=== PATIENT | male | born 1940 | race Caucasian/White ===

== ENCOUNTER 2017-02-14 20:28 | Emergency (ER) | payer MEDICARE, BC ==
[2017-02-14 20:57] LABS: BASO % 0.3 % (0-6); EOS % 1.9 % (0-6); GRAN % 48.9 % (47-80); HEMATOCRIT 43.1 % (42.0-52.0); HEMOGLOBIN 13.7 gm/dl (14.0-18.0); LYMPH % 35.5 % (16-45); MEAN CELL VOLUME 92.7 fl (81-97); MEAN CORPUSCULAR HGB CONC 31.8 g/dl (32-36); MEAN PLATELET VOLUME 10.3 fl (7.4-10.4); MONO % 13.4 % (0-9); PLATELET COUNT 362 K/uL (130-400); RED BLOOD COUNT 4.65 M/uL (4.40-5.70); RED CELL DISTRIBUTION WIDTH 14.8 % (11.5-14.5)
[2017-02-14 20:58] LABS: MEAN CORPUSCULAR HEMOGLOBIN 29.4 pg (27-33)
[2017-02-14 22:05] LABS: CKMB 1.4 ug/L (0-6)
[2017-02-14 22:16] LABS: TROPONIN I 0.198 ng/mL (0.00-0.034)
[2017-02-14] MEDS ORDERED: ASPIRIN 81 MG CHEWABLE TABLET PO ONE (22:30)
[2017-02-14 23:20] LABS: CREATININE 2.4 mg/dL (0.66-1.25)
[2017-02-14] MEDS ORDERED: POTASSIUM CHLORIDE 40 MEQ/15ML 40 MEQ/15 ML ML PO ONE (23:27)
--- NOTE | 2017-02-14 23:34 | Emergency Department Record ---
History of Present Illness - General Chief Complaint: Fall Injury Stated Complaint: FELL Time Seen by Provider: 02/14/17 20:39 Source: Patient, EMS Mode of Arrival: Ambulatory Limitations: No limitations - History of Present Illness Initial Comments: pt brought in for fall. pt has frequent falls and just got out of [facility] today. pt had no loc MD Complaint: Fall -: Unknown Fall From: Other When Fall Occurred: Just prior to arrival Fall Witnessed: Yes, by family Place Fall Occurred: Home Loss of Consciousness: None Prolonged Down Time?: No Symptoms Prior to Fall: None Context: History of frequent falls Associated Symptoms: Denies - [place] Coma Scale Eye Response: (4) Open spontaneously Motor Response: (6) Obeys commands Verbal Response: (5) Oriented [place] Total: 15 - Related Data Home Medications Medication Instructions Recorded Confirmed Last Taken Acetaminophen [Tylenol Extra 500 mg PO ASDIR 02/14/17 02/14/17 Unknown Strength] Amlodipine Besylate [Norvasc] 10 mg PO DAILY 02/14/17 02/14/17 Unknown Atorvastatin Calcium 20 mg PO DAILY 02/14/17 02/14/17 Unknown Carbidopa/Levodopa [Sinemet 25-100 1 each PO TID 02/14/17 02/14/17 Unknown mg Tablet] Clotrimazole/Betamethasone Dip 45 gm TP BID 02/14/17 02/14/17 Unknown [Clotrimazole-Betamethasone Crm] Dicyclomine HCl [Bentyl] 10 mg PO Q8H 02/14/17 02/14/17 Unknown Doxazosin Mesylate [Cardura] 2 mg PO DAILY 02/14/17 02/14/17 Unknown Enalapril Maleate 10 mg PO DAILY 02/14/17 02/14/17 Unknown Fluticasone Propionate [Flonase] 2 spray EACH NARES DAILY 02/14/17 02/14/17 Unknown Fluticasone/Salmeterol 250/50 1 each IH QAM 02/14/17 02/14/17 Unknown [Advair 250/50] Furosemide [Lasix] 20 mg PO DAILY 02/14/17 02/14/17 Unknown Gabapentin [Neurontin] 400 mg PO TID 02/14/17 02/14/17 Unknown Insulin Aspart [Novolog Flexpen] 0 unit SQ ASDIR 02/14/17 02/14/17 Unknown Insulin Degludec [Tresiba 55 unit SQ DAILY 02/14/17 02/14/17 Unknown Flextouch U-100] Insulin Detemir [Levemir Flextouch] 40 unit SQ DAILY 02/14/17 02/14/17 Unknown Mirabegron [Myrbetriq] 25 mg PO DAILY 02/14/17 02/14/17 Unknown Mirtazapine [Remeron] 15 mg PO QHS 02/14/17 02/14/17 Unknown Potassium Chloride [Klor-Con 10] 10 meq PO QAM 02/14/17 02/14/17 Unknown Sitagliptin Phosphate [Januvia] 100 mg PO DAILY 02/14/17 02/14/17 Unknown Zolpidem Tartrate [Ambien] 5 mg PO QHS 02/14/17 02/14/17 Unknown Allergies Allergy/AdvReac Type Severity Reaction Status Date / Time No Known Drug Allergies Allergy Verified 02/14/17 22:30 Travel Screening - Travel/Exposure Within Last 30 Days Have you traveled within the last 30 days?: No - Travel/Exposure Within Last Year Have you traveled outside the [place] in the last year?: No - Additonal Travel Details Have you been exposed to anyone with a communicable illness?: No - Travel Symptoms Symptom Screening: None Review of Systems Reviewed: No additional complaints except as noted below Constitutional: Reports: As per HPI. Denies: Chills, Fever, Malaise, Night sweats, Weakness, Weight change Eyes: Reports: As per HPI. Denies: Eye discharge, Eye pain, Photophobia, Vision change ENT: Reports: As per HPI. Denies: Congestion, Dental pain, Ear pain, Epistaxis , Hearing loss, Throat pain Respiratory: Reports: As per HPI. Denies: Cough, Dyspnea, Hemoptysis, Stridor, Wheezes Cardiovascular: Reports: As per HPI. Denies: Arrhythmia, Chest pain, Dyspnea on exertion, Edema, Murmurs, Orthopnea, Palpitations, Paroxysmal nocturnal dyspnea, Rheumatic Fever, Syncope Endocrine: Reports: As per HPI. Denies: Fatigue, Heat or cold intolerance, Polydipsia, Polyuria Gastrointestinal: Reports: As per HPI. Denies: Abdominal pain, Constipation, Diarrhea, Hematemesis, Hematochezia, Melena, Nausea, Vomiting Genitourinary: Reports: As per HPI. Denies: Dysuria, Frequency, Hematuria, Incontinence, Retention, Testicular pain, Testicular mass, Urgency Musculoskeletal: Reports: As per HPI. Denies: Arthralgia, Back pain, Gout, Joint swelling, Myalgia, Neck pain Skin: Reports: As per HPI. Denies: Bruising, Change in color, Change in hair/ nails, Lesions, Pruritus, Rash Neurological: Reports: As per HPI. Denies: Abnormal gait, Confusion, Headache, Numbness, Paresthesias, Seizure, Tingling, Tremors, Vertigo, Weakness Psychiatric: Reports: As per HPI. Denies: Anxiety, Auditory hallucinations, Depression, Homicidal thoughts, Suicidal thoughts, Visual hallucinations Hematological/Lymphatic: Reports: As per HPI. Denies: Anemia, Blood Clots, Easy bleeding, Easy bruising, Swollen glands Past Medical History - SOCIAL HISTORY Smoking Status: Never smoker Alcohol Use: None Drug Use: None - CARDIOVASCULAR Hx Cardio Disorders: Yes Hx Hypertension: Yes Comment:: high cholesterol - NEURO Hx Neuro Disorders: Yes Hx TIA: Yes - ENDOCRINE Hx Endocrine Disorders: Yes Hx Diabetes: Yes Family Medical History Any Significant Family History?: No Physical Exam - General General Appearance: Alert, Oriented x3, Cooperative, Mild distress Limitations: No limitations - Head Head exam: Normal inspection - Eye Eye exam: Normal appearance, PERRL, EOMI Pupils: Normal accommodation - ENT ENT exam: Normal exam, Mucous membranes moist, Normal external ear exam, Normal orophraynx Ear exam: Normal external inspection. negative: External canal tenderness Nasal Exam: Normal inspection. negative: Discharge, Sinus tenderness Mouth exam: Normal external inspection, Tongue normal Teeth exam: Normal inspection. negative: Dental caries Throat exam: Normal inspection. negative: Tonsillar erythema, Tonsillar exudate - Neck Neck exam: Normal inspection, Full ROM. negative: Tenderness - Respiratory Respiratory exam: Normal lung sounds bilaterally, Chest wall tenderness. negative: Respiratory distress - Cardiovascular Cardiovascular Exam: Regular rate, Normal rhythm, Normal heart sounds - GI/Abdominal GI/Abdominal exam: Soft, Normal bowel sounds. negative: Tenderness - Rectal Rectal exam: Deferred - exam: Deferred - Extremities Extremities exam: Normal inspection, Full ROM, Normal capillary refill. negative: Tenderness - Back Back exam: Reports: Normal inspection, Full ROM. Denies: Muscle spasm, Rash noted, Tenderness - Neurological Neurological exam: Alert, CN II-XII intact, Normal gait, Oriented X3 - Psychiatric Psychiatric exam: Normal affect, Normal mood - Skin Skin exam: Dry, Intact, Normal color, Warm Course Vital Signs 02/14/17 02/14/17 02/14/17 20:42 22:05 23:25 Temperature 97.6 F 97.6 F Pulse Rate 60 Pulse Rate [ 61 60 Pulse Ox Probe] Respiratory 18 21 16 Rate Blood Pressure 132/57 Blood Pressure 172/67 148/53 [Left Arm] Pulse Ox 93 L 94 L 96 - Reevaluation(s) Reevaluation #1: 02/14/17 23:32 pt became more confused prior to getting labs back. acucheck was low and pt was fed and is much better. pt had 1 brief episode of cp. Medical Decision Making - Lab Data Result diagrams: 02/14/17 20:50 02/14/17 20:50 Lab Results 02/14/17 02/14/17 02/14/17 Range/Units 20:50 20:50 21:20 WBC 12.0 (4.2-12.2) K/uL RBC 4.65 (4.40-5.70) M/uL Hgb 13.7 L (14.0-18.0) gm/dl Hct 43.1 (42.0-52.0) % MCV 92.7 (81-97) fl MCH 29.4 (27-33) pg MCHC 31.8 L (32-36) g/dl RDW 14.8 H (11.5-14.5) % Plt Count 362 (130-400) K/uL MPV 10.3 (7.4-10.4) fl Gran % 48.9 (47-80) % Lymphocytes % 35.5 (16-45) % Monocytes % 13.4 H (0-9) % Eosinophils % 1.9 (0-6) % Basophils % 0.3 (0-6) % Sodium 138 (136-145) mmol/L Potassium 3.1 L (3.5-5.1) mmol/L Chloride 98 (98-107) mmol/L Carbon Dioxide 23.0 (22-30) mmol/L Anion Gap 17.0 H (7-16) BUN 18 (9-20) mg/dL Creatinine 2.4 H (0.66-1.25) mg/dL Estimated GFR 28 ml/min POC Glucose (70-110) mg/dL Random Glucose 37 L* (70-110) mg/dL Calcium 10.2 H (8.5-10.1) mg/dL Creatine Kinase 189 H (55-170) U/L CK-MB (CK-2) 1.4 (0-6) ug/L Troponin I 0.198 H* (0.00-0.034) ng/mL 02/14/17 Range/Units 22:28 WBC (4.2-12.2) K/uL RBC (4.40-5.70) M/uL Hgb (14.0-18.0) gm/dl Hct (42.0-52.0) % MCV (81-97) fl MCH (27-33) pg MCHC (32-36) g/dl RDW (11.5-14.5) % Plt Count (130-400) K/uL MPV (7.4-10.4) fl Gran % (47-80) % Lymphocytes % (16-45) % Monocytes % (0-9) % Eosinophils % (0-6) % Basophils % (0-6) % Sodium (136-145) mmol/L Potassium (3.5-5.1) mmol/L Chloride (98-107) mmol/L Carbon Dioxide (22-30) mmol/L Anion Gap (7-16) BUN (9-20) mg/dL Creatinine (0.66-1.25) mg/dL Estimated GFR ml/min POC Glucose 38 L* (70-110) mg/dL Random Glucose (70-110) mg/dL Calcium (8.5-10.1) mg/dL Creatine Kinase (55-170) U/L CK-MB (CK-2) (0-6) ug/L Troponin I (0.00-0.034) ng/mL Disposition Disposition: Transfer Clinical Impression: Elevated troponin, Hypoglycemia, Hypokalemia, Frequent falls Chest pain Qualifiers: Chest pain type: unspecified Qualified Code(s): R07.9 - Chest pain, unspecified Disposition: Acute Care Hospital Transfer Transfer To: [facility] Reason For Transfer: elevated troponin Accepting Physician: dr herman Time Discussed w/Accepting Physician: 23:46 Forms: Patient Portal Access
[2017-02-14] MEDS ORDERED: POTASSIUM CHLORIDE 20 MEQ/15ML CUP PO ONE (23:37)
--- NOTE | 2017-02-20 07:51 | CT SCAN REPORT ---
EXAM: HEAD CT WITHOUT CONTRAST HISTORY: FELL OFF TOILET, WEAKNESS, HISTORY OF PARKINSON'S. NO LOSS OF CONSCIOUSNESS. TECHNIQUE: Contiguous axial images from the cerebral convexities to the foramen magnum were obtained without contrast. Comparison: None. Encounter: Initial. FINDINGS: Mild generalized atrophy of the brain. No acute intracranial hemorrhage, mass effect, or midline shift. Mild decreased attenuation in the periventricular white matter of the cerebral hemispheres. No CT evidence of acute infarct. There is fat attenuation density with a peripheral calcification in the quadrigeminal plate cistern to the left of midline measuring 14 x 4 mm likely due to a dermoid cyst. No evidence of rupture. The ventricles, basal cisterns and sulci are within normal limits. The osseous structures, soft tissues and paranasal sinuses are unremarkable. IMPRESSION: 1. NO ACUTE INTRACRANIAL PROCESS. 2. PROBABLE INCIDENTAL SMALL DERMOID CYST IN THE QUADRIGEMINAL PLATE CISTERN TO THE LEFT OF MIDLINE. NO EVIDENCE OF RUPTURE. 3. MILD CHRONIC SMALL VESSEL ISCHEMIC CHANGE. JOB NUMBER: [id number] [facility]
--- NOTE | 2017-02-20 08:09 | CT SCAN REPORT ---
EXAM: CERVICAL SPINE CT WITH TWO DIMENSIONAL REFORMATS HISTORY: FELL FROM TOILET, WEAKNESS, NECK PAIN. TECHNIQUE: Contiguous axial images from the skull base to the T2 level were obtained without contrast. Sagittal and coronal two dimensional reformatted images were obtained for better anatomic delineation. Comparison: None. FINDINGS: Slight reversal of the normal cervical lordosis. Prior anterior plate and screw fusion of the C5-C6 level with bone ankylosis of the vertebral bodies. The C1-C2 articulation appears appropriate and the odontoid is intact. No acute fracture or subluxation. At the C2-C3 level: No central canal stenosis. Severe facet arthropathy on the right. Mild right neural foraminal stenosis. At the C3-C4 level: No central canal stenosis. Severe facet arthropathy on the right with severe right neural foraminal stenosis. At the C4-C5 level: No central canal stenosis. Advanced facet arthropathy. Mild to moderate neural foraminal stenosis. At the C5-C6 level: No central canal stenosis. Facet arthropathy with mild neural foraminal stenosis. At the C6-C7 level: Small end plate osteophytes with no disk protrusion. Uncovertebral joint hypertrophy. Mild to moderate bilateral neural foraminal stenosis. At the C7-T1 level: No central canal stenosis. Facet arthropathy with mild bilateral neural foraminal stenosis. The soft tissues of the cervical region demonstrate a few small cystic nodules in the right lobe of the thyroid which are benign. The lung apices are clear. IMPRESSION: 1. NO ACUTE FRACTURE OR SUBLUXATION OF THE CERVICAL SPINE. 2. ADVANCED MULTILEVEL DEGENERATIVE CHANGE OF THE CERVICAL SPINE WITH NO CENTRAL CANAL STENOSIS AT ANY LEVEL. 3. ADVANCED FACET ARTHROPATHY AT MULTIPLE LEVELS RESULTING IN VARYING DEGREES OF NEURAL FORAMINAL STENOSIS ABOVE. JOB NUMBER: [id number] [facility]
== END 2017-02-15 00:38 | disposition short-term general hospital (02) ==
LOC: ER 20:28
DX: R07.9 Chest pain, unspecified (principal); R79.89 Other specified abnormal findings of blood chemistry; E87.6 Hypokalemia; R53.1 Weakness; E11.649 Type 2 diabetes mellitus with hypoglycemia without coma; Z79.4 Long term (current) use of insulin; Z91.81 History of falling; W18.11XA Fall from or off toilet without subsequent striking against object, initial encounter; Y92.002 Bathroom of unspecified non-institutional (private) residence as the place of occurrence of the external cause
CPT/HCPCS: 36416; 70450; 72125; 80048; 82550; 82553; 82948; 84484; 85025; 93005; 93010; 99285

== ENCOUNTER 2017-02-23 18:17 | Inpatient (IN) | payer MEDICARE, BC ==
[2017-02-23] MEDS ORDERED: 0.9 % SODIUM CHLORIDE 1000ML 1,000 ML IV SCH (18:30)
--- NOTE | 2017-02-23 18:33 | Emergency Department Record ---
History of Present Illness - General Chief Complaint: Altered Mental Status Stated Complaint: ALTERED MENTAL STATE Time Seen by Provider: 02/23/17 18:26 Source: Patient, EMS Mode of Arrival: EMS Limitations: No limitations - History of Present Illness Initial Comments: 76 yo male presents to ED from home for evaluation of altered mental status and low blood sugar. Per EMS, patient was given both Glucagon and oral glucose which improved his mentation. Police/EMS report that the patient has experienced (3) hypoglycemic episodes in the last 3 days. Patient denies recent illness, fevers, chills, cough, or abdominal pain symptoms. Patient does report just getting back from [place] and is living with his grandson for the past 1 weeks, police feel they are unable to care for the patient currently. MD Complaint: Altered mental status Onset/Timin -: Minutes(s) Severity: Severe Context: Diabetes Associated Symptoms: Other Treatment Prior to Arrival Comment:: glucagon - [place] Coma Scale Eye Response: (4) Open spontaneously Motor Response: (6) Obeys commands Verbal Response: (5) Oriented [place] Total: 15 - Related Data Home Medications Medication Instructions Recorded Confirmed Last Taken Acetaminophen [Tylenol Extra 500 mg PO ASDIR 02/14/17 02/23/17 Unknown Strength] Amlodipine Besylate [Norvasc] 10 mg PO DAILY 02/14/17 02/23/17 Unknown Atorvastatin Calcium 20 mg PO DAILY 02/14/17 02/23/17 Unknown Carbidopa/Levodopa [Sinemet 25-100 1 each PO TID 02/14/17 02/23/17 Unknown mg Tablet] Clotrimazole/Betamethasone Dip 45 gm TP BID 02/14/17 02/23/17 Unknown [Clotrimazole-Betamethasone Crm] Dicyclomine HCl [Bentyl] 10 mg PO Q8H 02/14/17 02/23/17 Unknown Doxazosin Mesylate [Cardura] 2 mg PO DAILY 02/14/17 02/23/17 Unknown Enalapril Maleate 10 mg PO DAILY 02/14/17 02/23/17 Unknown Fluticasone Propionate [Flonase] 2 spray EACH NARES DAILY 02/14/17 02/23/17 Unknown Fluticasone/Salmeterol 250/50 1 each IH QAM 02/14/17 02/23/17 Unknown [Advair 250/50] Furosemide [Lasix] 20 mg PO DAILY 02/14/17 02/23/17 Unknown Gabapentin [Neurontin] 400 mg PO TID 02/14/17 02/23/17 Unknown Insulin Aspart [Novolog Flexpen] 0 unit SQ ASDIR 02/14/17 02/23/17 Unknown Insulin Degludec [Tresiba 55 unit SQ DAILY 02/14/17 02/23/17 Unknown Flextouch U-100] Insulin Detemir [Levemir Flextouch] 40 unit SQ DAILY 02/14/17 02/23/17 Unknown Mirabegron [Myrbetriq] 25 mg PO DAILY 02/14/17 02/23/17 Unknown Mirtazapine [Remeron] 15 mg PO QHS 02/14/17 02/23/17 Unknown Potassium Chloride [Klor-Con 10] 10 meq PO QAM 02/14/17 02/23/17 Unknown Sitagliptin Phosphate [Januvia] 100 mg PO DAILY 02/14/17 02/23/17 Unknown Zolpidem Tartrate [Ambien] 5 mg PO QHS 02/14/17 02/23/17 Unknown Allergies Allergy/AdvReac Type Severity Reaction Status Date / Time No Known Drug Allergies Allergy Verified 02/23/17 18:31 Travel Screening - Travel/Exposure Within Last 30 Days Have you traveled within the last 30 days?: No Review of Systems Constitutional: Denies: Chills, Fever, Malaise, Night sweats Eyes: Denies: Eye discharge, Eye pain ENT: Denies: Congestion, Ear pain, Epistaxis Respiratory: Denies: Cough, Dyspnea Cardiovascular: Denies: Chest pain, Dyspnea on exertion Endocrine: Denies: Fatigue, Heat or cold intolerance Gastrointestinal: Denies: Abdominal pain, Nausea, Vomiting Genitourinary: Denies: Incontinence, Retention Musculoskeletal: Reports: Back pain (chronic per patient). Denies: Arthralgia Skin: Denies: Bruising, Change in color Neurological: Reports: Confusion. Denies: Abnormal gait, Headache Psychiatric: Denies: Anxiety Hematological/Lymphatic: Denies: Anemia, Blood Clots Past Medical History - SOCIAL HISTORY Smoking Status: Never smoker Drug Use: None - CARDIOVASCULAR Hx Cardio Disorders: Yes Hx Hypertension: Yes Comment:: high cholesterol - NEURO Hx Neuro Disorders: Yes Hx TIA: Yes - ENDOCRINE Hx Endocrine Disorders: Yes Hx Diabetes: Yes Physical Exam - General General Appearance: Alert, Oriented x3, Cooperative, Mild distress Limitations: No limitations - Head Head exam: Atraumatic, Normocephalic, Normal inspection Head exam detail: negative: Abrasion, Contusion, Ordonez's sign, General tenderness, Hematoma, Laceration - Eye Eye exam: Normal appearance. negative: Conjunctival injection, Periorbital swelling, Periorbital tenderness, Scleral icterus - ENT Ear exam: negative: Auricular hematoma, Auricular trauma Nasal Exam: negative: Active bleeding, Discharge, Dried blood, Foreign body Mouth exam: negative: Drooling, Laceration, Muffled voice, Tongue elevation - Neck Neck exam: Normal inspection. negative: Meningismus, Tenderness - Respiratory Respiratory exam: Normal lung sounds bilaterally. negative: Respiratory distress, Rhonchi, Stridor, Wheezes - Cardiovascular Cardiovascular Exam: Regular rate, Normal rhythm, Normal heart sounds - GI/Abdominal GI/Abdominal exam: Soft. negative: Pulsatile mass, Rebound, Rigid, Tenderness - Rectal Rectal exam: Deferred - exam: Deferred - Extremities Extremities exam: Pedal edema. negative: Calf tenderness, Tenderness - Back Back exam: Denies: CVA tenderness (R), CVA tenderness (L) - Neurological Neurological exam: Alert, Oriented X3, Other (mild resting tremor to the upper extremities bilaterally on examination). negative: Motor sensory deficit - Psychiatric Psychiatric exam: Normal affect, Normal mood - Skin Skin exam: Pallor. negative: Abrasion Type of lesion: negative: abrasion Course Vital Signs 02/23/17 18:19 Temperature 97.6 F Pulse Rate 60 Respiratory 16 Rate Blood Pressure 82/36 Pulse Ox 96 - Reevaluation(s) Reevaluation #1: 02/23/17 18:48 EKG: Paced rhythm 60 LBBB morphology Unchanged from previous Reevaluation #2: 02/23/17 19:12 Labs reviewed, Hgb 11.6, WBC 7.1, Lactic acid 2.2, BUN/Creatinine are 38/1.8 (18 /2.4). Patient is currently in x-ray. Reevaluation #3: 02/23/17 19:26 repeat BP 114/91 upon arrival back to the ED, D50 given for recurrent hypoglycemia. Reevaluation #4: 02/23/17 20:34 CT Brain: Atrophy, chronic changes, nothing acute. CXR: pacemaker, elevated right jasson-diaphragm Repeat accu check 84, patient is eating currently, awaiting UA results. Reevaluation #5: 02/23/17 20:58 Case was discussed with Michelle Claros, will admit for further evaluation. Will hole all diabetic medications as well as medications that may be contributing to the patient's change in mental status. 02/23/17 21:04 Medical Decision Making - Lab Data Result diagrams: 02/23/17 18:35 02/23/17 18:35 Disposition Disposition: Admit Clinical Impression: Hypoglycemia Altered mental status Qualifiers: Altered mental status type: unspecified Qualified Code(s): R41.82 - Altered mental status, unspecified Disposition: Still a Patient at [facility] Decision to Admit: Admit from ER Decision to Admit Date: 02/23/17 Decision to Admit Time: 20:48 Condition: (2) Stable Forms: Patient Portal Access Time of Disposition: 20:58
[2017-02-23 18:39] LABS: BASO % 0.7 % (0-6); EOS % 2.8 % (0-6); GRAN % 54.7 % (47-80); HEMATOCRIT 36.3 % (42.0-52.0); HEMOGLOBIN 11.6 gm/dl (14.0-18.0); LYMPH % 29.5 % (16-45); MEAN CELL VOLUME 95.3 fl (81-97); MEAN CORPUSCULAR HEMOGLOBIN 30.4 pg (27-33); MONO % 12.3 % (0-9); PLATELET COUNT 320 K/uL (130-400); RED BLOOD COUNT 3.81 M/uL (4.40-5.70); RED CELL DISTRIBUTION WIDTH 14.7 % (11.5-14.5); WHITE BLOOD COUNT W/O DIFF 7.1 K/uL (4.2-12.2)
[2017-02-23 18:50] LABS: LACTIC ACID 2.2 mmol/L (0.7-2.1)
[2017-02-23 18:51] LABS: ALB/GLOB RATIO 1.2 (1.1-1.8); ALBUMIN 3.6 gm/dL (3.5-5.0); ALKALINE PHOSPHATASE 156 U/L (38-126); ALT/SGPT 12 U/L (21-72); AST/SGOT 60 U/L (17-59); BLOOD UREA NITROGEN 38 mg/dL (9-20); CREATINE PHOSPHOKINASE 104 U/L (55-170); CREATININE 1.8 mg/dL (0.66-1.25); EST GLOMERULAR FILTRATION RATE 39 ml/min; TOTAL PROTEIN 6.6 gm/dL (6.3-8.2)
[2017-02-23] MEDS ORDERED: DEXTROSE 50 % IVP 50 ML DISP.SYRIN IVP ONE (18:53)
[2017-02-23 19:00] LABS: CKMB 1.2 ug/L (0-6); GLUCOSE,RANDOM 49 mg/dL (70-110)
[2017-02-23 19:02] LABS: TROPONIN I < 0.012 ng/mL (0.00-0.034)
[2017-02-23 20:49] LABS: URINE APPEARANCE CLEAR; URINE BILIRUBIN NEGATIVE (NEGATIVE); URINE BLOOD NEGATIVE (NEGATIVE); URINE COLOR YELLOW; URINE GLUCOSE (UA) NEGATIVE (NEGATIVE); URINE KETONE NEGATIVE (NEGATIVE); URINE LEUKOCYTE ESTERASE NEGATIVE (NEGATIVE); URINE NITRITE NEGATIVE (NEGATIVE); URINE PROTEIN NEGATIVE (NEGATIVE); URINE UROBILINOGEN 0.2 E.U./dL (0.20 - 1.00)
[2017-02-23] MEDS ORDERED: 0.9 % SODIUM CHLORIDE 1000ML 1,000 ML IV PRN (21:48)
[2017-02-23] MEDS: CARBIDOPA/LEVODOPA 25MG/100MG TABLET PO SCH (22:43)
[2017-02-23] MEDS: CLOTRIMAZOLE/BETAMET 15 GM TUBE TOP SCH (22:44)
--- NOTE | 2017-02-24 07:33 | RADIOLOGY REPORT ---
EXAM: CHEST HISTORY: HEARTBURN SENSATION. TECHNIQUE: Two views of the chest were obtained. Comparison: None. FINDINGS: The heart is not enlarged and there is no mediastinal mass. There is a pacemaker present. There is elevation of the right hemidiaphragm. There is no acute infiltrate or vascular congestion. There are electrodes overlying the mid thoracic spinal canal. IMPRESSION: 1. NO ACUTE CARDIAC OR PULMONARY ABNORMALITY. 2. ELEVATION RIGHT HEMIDIAPHRAGM. 3. THERE IS A PACEMAKER PRESENT. JOB NUMBER: [id number] [facility]
--- NOTE | 2017-02-24 07:38 | CT SCAN REPORT ---
EXAM: HEAD CT HISTORY: ALTERED MENTAL STATUS. TECHNIQUE: Noncontrast head CT was obtained. Comparison: 02/14/17. FINDINGS: There is mild prominence of the ventricles and subarachnoid spaces likely due to mild atrophy, not unusual for the patient's age. There is no mass or mass effect. No intra or extraaxial hemorrhage. No CT evidence for large acute territorial infarct. There is an area of low density in the left quadrigeminal plate cistern measuring 3.8 x 1.4 cm in size. There is a small peripheral calcification. This is unchanged from the previous study, it may represent a dermoid cyst. No evidence for a rupture seen. The visualized sinuses are clear. IMPRESSION: 1. NO ACUTE INTRACRANIAL PROCESS. 2. PROBABLE INCIDENTAL SMALL DERMOID CYST IN THE QUADRIGEMINAL PLATE CISTERN TO THE LEFT OF MIDLINE UNCHANGED FROM THE PREVIOUS STUDY WITH NO EVIDENCE OF RUPTURE. 3. MILD ATROPHY SIMILAR TO THE PREVIOUS STUDY NOT UNUSUAL FOR THE PATIENT'S AGE. JOB NUMBER: [id number] [facility]
[2017-02-24 08:32] LABS: BASO % 0.5 % (0-6); EOS % 2.3 % (0-6); GRAN % 56.1 % (47-80); HEMATOCRIT 36.3 % (42.0-52.0); HEMOGLOBIN 11.7 gm/dl (14.0-18.0); LYMPH % 30.8 % (16-45); MEAN CELL VOLUME 95.3 fl (81-97); MEAN CORPUSCULAR HEMOGLOBIN 30.7 pg (27-33); MEAN CORPUSCULAR HGB CONC 32.2 g/dl (32-36); MEAN PLATELET VOLUME 10.3 fl (7.4-10.4); MONO % 10.3 % (0-9); PLATELET COUNT 276 K/uL (130-400); RED BLOOD COUNT 3.81 M/uL (4.40-5.70); RED CELL DISTRIBUTION WIDTH 14.9 % (11.5-14.5); WHITE BLOOD COUNT W/O DIFF 8.6 K/uL (4.2-12.2)
[2017-02-24 08:46] LABS: ALB/GLOB RATIO 1.1 (1.1-1.8); ALBUMIN 3.4 gm/dL (3.5-5.0); ANION GAP 2.3 (7-16); BILIRUBIN,TOTAL 0.61 mg/dL (0.2-1.3); CARBON DIOXIDE 22.7 mmol/L (22-30); CREATININE 1.5 mg/dL (0.66-1.25); TOTAL PROTEIN 6.4 gm/dL (6.3-8.2)
[2017-02-24] MEDS: CARBIDOPA/LEVODOPA 25MG/100MG TABLET PO SCH ×3 (09:27→21:34)
[2017-02-24] MEDS: CLOTRIMAZOLE/BETAMET 15 GM TUBE TOP SCH ×2 (09:28→21:38)
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
[2017-02-24] MEDS: FUROSEMIDE 20 MG TABLET PO SCH (11:57)
[2017-02-24] MEDS: NOVOLOG FLEXPEN (INSULIN ASPART) 100 UNITS/ML SQ SCH ×2 (13:25→19:11)
[2017-02-24] MEDS ORDERED: CLOTRIMAZOLE/BETAMET 15 GM TUBE TOP ONE (14:00)
[2017-02-24] MEDS: GABAPENTIN 300 MG CAPSULE PO SCH ×3 (14:24→21:34)
[2017-02-24] MEDS: ACETAMINOPHEN 500 MG TABLET PO PRN ×2 (14:24→21:36)
[2017-02-24] MEDS: DULOXETINE HCL 30 MG CAPSULE.DR PO SCH (22:48)
[2017-02-24] MEDS: ENALAPRIL 5 MG TABLET PO SCH (22:48)
[2017-02-24] MEDS: ATORVASTATIN 20 MG TABLET PO SCH (22:48)
[2017-02-24] MEDS: ZOLPIDEM TARTRATE 5 MG TABLET PO PRN (22:48)
[2017-02-25] MEDS: PANTOPRAZOLE SODIUM 40 MG TABLET PO SCH ×2 (06:14→17:58)
[2017-02-25 06:44] LABS: BASO % 0.7 % (0-6); EOS % 4.6 % (0-6); GRAN % 46.7 % (47-80); HEMATOCRIT 38.4 % (42.0-52.0); HEMOGLOBIN 12.1 gm/dl (14.0-18.0); LYMPH % 37.3 % (16-45); MEAN CELL VOLUME 94.6 fl (81-97); MEAN CORPUSCULAR HEMOGLOBIN 29.8 pg (27-33); MEAN CORPUSCULAR HGB CONC 31.5 g/dl (32-36); MEAN PLATELET VOLUME 10.2 fl (7.4-10.4); MONO % 10.7 % (0-9); PLATELET COUNT 299 K/uL (130-400); RED BLOOD COUNT 4.06 M/uL (4.40-5.70); RED CELL DISTRIBUTION WIDTH 14.8 % (11.5-14.5); WHITE BLOOD COUNT W/O DIFF 6.9 K/uL (4.2-12.2)
[2017-02-25 07:02] LABS: ALB/GLOB RATIO 1.2 (1.1-1.8); ALBUMIN 3.5 gm/dL (3.5-5.0); ALKALINE PHOSPHATASE 145 U/L (38-126); ALT/SGPT 19 U/L (21-72); ANION GAP 4.1 (7-16); AST/SGOT 41 U/L (17-59); BILIRUBIN,TOTAL 0.67 mg/dL (0.2-1.3); BLOOD UREA NITROGEN 26 mg/dL (9-20); CARBON DIOXIDE 26.9 mmol/L (22-30); CREATININE 1.1 mg/dL (0.66-1.25); EST GLOMERULAR FILTRATION RATE > 60 ml/min; GLUCOSE,RANDOM 166 mg/dL (70-110); TOTAL PROTEIN 6.4 gm/dL (6.3-8.2)
[2017-02-25] MEDS: NOVOLOG FLEXPEN (INSULIN ASPART) 100 UNITS/ML SQ SCH ×3 (08:04→17:57)
[2017-02-25] MEDS: DOXAZOSIN MESYLATE 2 MG TABLET PO SCH (10:19)
[2017-02-25] MEDS: FUROSEMIDE 20 MG TABLET PO SCH (10:20)
[2017-02-25] MEDS: DULOXETINE HCL 30 MG CAPSULE.DR PO SCH ×2 (10:20→22:07)
[2017-02-25] MEDS: CLOTRIMAZOLE/BETAMET 15 GM TUBE TOP SCH ×2 (10:20→22:07)
[2017-02-25] MEDS: ENOXAPARIN 40 MG/0.4 ML SYR SQ SCH (10:20)
[2017-02-25] MEDS: GABAPENTIN 300 MG CAPSULE PO SCH ×3 (10:20→22:07)
[2017-02-25] MEDS: CARBIDOPA/LEVODOPA 25MG/100MG TABLET PO SCH ×3 (10:21→22:07)
[2017-02-25] MEDS: CLOPIDOGREL 75MG TABLET PO SCH (10:21)
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
[2017-02-25] MEDS: ENALAPRIL 5 MG TABLET PO SCH (22:07)
[2017-02-25] MEDS: ATORVASTATIN 20 MG TABLET PO SCH (22:07)
[2017-02-25] MEDS: ZOLPIDEM TARTRATE 5 MG TABLET PO PRN (23:36)
[2017-02-26] MEDS: PANTOPRAZOLE SODIUM 40 MG TABLET PO SCH ×2 (06:08→16:04)
[2017-02-26 06:53] LABS: BASO % 0.5 % (0-6); EOS % 3.2 % (0-6); LYMPH % 35.7 % (16-45); MEAN PLATELET VOLUME 9.8 fl (7.4-10.4); MONO % 11.6 % (0-9); RED CELL DISTRIBUTION WIDTH 14.4 % (11.5-14.5); WHITE BLOOD COUNT W/O DIFF 7.5 K/uL (4.2-12.2)
[2017-02-26 07:03] LABS: HEMATOCRIT 37.8 % (42.0-52.0); HEMOGLOBIN 12.4 gm/dl (14.0-18.0); MEAN CELL VOLUME 95.7 fl (81-97); MEAN CORPUSCULAR HEMOGLOBIN 31.4 pg (27-33); MEAN CORPUSCULAR HGB CONC 32.8 g/dl (32-36); PLATELET COUNT 253 K/uL (130-400); RED BLOOD COUNT 3.95 M/uL (4.40-5.70)
[2017-02-26 07:06] LABS: ALB/GLOB RATIO 1.2 (1.1-1.8); ALBUMIN 3.6 gm/dL (3.5-5.0); ALKALINE PHOSPHATASE 160 U/L (38-126); ALT/SGPT 16 U/L (21-72); ANION GAP 6.2 (7-16); AST/SGOT 43 U/L (17-59); BILIRUBIN,TOTAL 0.63 mg/dL (0.2-1.3); BLOOD UREA NITROGEN 25 mg/dL (9-20); CARBON DIOXIDE 28.8 mmol/L (22-30); CREATININE 1.2 mg/dL (0.66-1.25); EST GLOMERULAR FILTRATION RATE > 60 ml/min; GLUCOSE,RANDOM 281 mg/dL (70-110); TOTAL PROTEIN 6.5 gm/dL (6.3-8.2)
[2017-02-26] MEDS: NOVOLOG FLEXPEN (INSULIN ASPART) 100 UNITS/ML SQ SCH ×3 (07:58→17:28)
[2017-02-26] MEDS: DOXAZOSIN MESYLATE 2 MG TABLET PO SCH (09:18)
[2017-02-26] MEDS: CARBIDOPA/LEVODOPA 25MG/100MG TABLET PO SCH ×3 (09:19→21:07)
[2017-02-26] MEDS: FUROSEMIDE 20 MG TABLET PO SCH (09:19)
[2017-02-26] MEDS: DULOXETINE HCL 30 MG CAPSULE.DR PO SCH ×2 (09:19→21:08)
[2017-02-26] MEDS: CLOPIDOGREL 75MG TABLET PO SCH (09:20)
[2017-02-26] MEDS: ENOXAPARIN 40 MG/0.4 ML SYR SQ SCH (09:20)
[2017-02-26] MEDS: GABAPENTIN 300 MG CAPSULE PO SCH ×3 (09:23→21:07)
[2017-02-26] MEDS: CLOTRIMAZOLE/BETAMET 15 GM TUBE TOP SCH ×2 (09:24→21:11)
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
[2017-02-26] MEDS ORDERED: NOVOLOG FLEXPEN (INSULIN ASPART) 100 UNITS/ML SQ ONE (12:47)
[2017-02-26] MEDS: LEVEMIR FLEXTOUCH 100 UNIT/ML INSULIN PEN SQ SCH (12:54)
[2017-02-26] MEDS: ACETAMINOPHEN 500 MG TABLET PO PRN (14:08)
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
[2017-02-26] MEDS: ZOLPIDEM TARTRATE 5 MG TABLET PO PRN (21:07)
[2017-02-26] MEDS: ATORVASTATIN 20 MG TABLET PO SCH (21:07)
[2017-02-26] MEDS: ENALAPRIL 5 MG TABLET PO SCH (21:07)
[2017-02-27] MEDS: PANTOPRAZOLE SODIUM 40 MG TABLET PO SCH ×2 (06:05→16:25)
[2017-02-27 06:34] LABS: BASO % 0.6 % (0-6); EOS % 3.4 % (0-6); GRAN % 52.7 % (47-80); HEMATOCRIT 40.5 % (42.0-52.0); LYMPH % 35.4 % (16-45); MEAN CELL VOLUME 92.7 fl (81-97); MEAN CORPUSCULAR HEMOGLOBIN 29.7 pg (27-33); MEAN CORPUSCULAR HGB CONC 32.1 g/dl (32-36); MEAN PLATELET VOLUME 9.7 fl (7.4-10.4); MONO % 7.9 % (0-9); PLATELET COUNT 271 K/uL (130-400); RED BLOOD COUNT 4.37 M/uL (4.40-5.70); RED CELL DISTRIBUTION WIDTH 14.6 % (11.5-14.5); WHITE BLOOD COUNT W/O DIFF 9.7 K/uL (4.2-12.2)
[2017-02-27 06:49] LABS: ALB/GLOB RATIO 1.3 (1.1-1.8); ALBUMIN 3.8 gm/dL (3.5-5.0); ALKALINE PHOSPHATASE 173 U/L (38-126); ALT/SGPT 33 U/L (21-72); ANION GAP 6.9 (7-16); AST/SGOT 48 U/L (17-59); BILIRUBIN,TOTAL 0.75 mg/dL (0.2-1.3); BLOOD UREA NITROGEN 26 mg/dL (9-20); CARBON DIOXIDE 26.1 mmol/L (22-30); CREATININE 1.1 mg/dL (0.66-1.25); EST GLOMERULAR FILTRATION RATE > 60 ml/min; GLUCOSE,RANDOM 291 mg/dL (70-110); TOTAL PROTEIN 6.8 gm/dL (6.3-8.2)
[2017-02-27] MEDS: NOVOLOG FLEXPEN (INSULIN ASPART) 100 UNITS/ML SQ SCH ×3 (07:19→16:36)
[2017-02-27] MEDS: FUROSEMIDE 20 MG TABLET PO SCH (09:29)
[2017-02-27] MEDS: DOXAZOSIN MESYLATE 2 MG TABLET PO SCH (09:29)
[2017-02-27] MEDS: CLOPIDOGREL 75MG TABLET PO SCH (09:29)
[2017-02-27] MEDS: DULOXETINE HCL 30 MG CAPSULE.DR PO SCH ×2 (09:29→22:04)
[2017-02-27] MEDS: GABAPENTIN 300 MG CAPSULE PO SCH ×3 (09:29→22:05)
[2017-02-27] MEDS: CARBIDOPA/LEVODOPA 25MG/100MG TABLET PO SCH ×3 (09:29→22:05)
[2017-02-27] MEDS: ENOXAPARIN 40 MG/0.4 ML SYR SQ SCH (09:30)
[2017-02-27] MEDS: CLOTRIMAZOLE/BETAMET 15 GM TUBE TOP SCH ×2 (09:34→22:11)
--- NOTE | 2017-02-27 12:37 | Physician Progress Note ---
Subjective - Date Date of Physician Progress Note: 02/27/17 - Subjective Subjective Comment: Sw working on half-way placement possibilities at present. Medically patient is still labile with BS. Objective - Multidiciplinary Team Multidiciplinary Team: Case Management, Social Work - Vital Signs Vital Signs: Vital Signs - Last 24 Hrs Temp Pulse Resp BP Pulse Ox 02/27/17 12:00 97.7 F 78 20 142/78 02/27/17 08:36 72 20 02/27/17 08:00 98.4 F 72 20 126/78 95 02/27/17 04:00 97.5 F L 104 H 18 166/81 02/26/17 23:50 116 H 21 129/70 99 02/26/17 20:00 98.6 F 106 H 24 127/65 97 - General General Appearance: Alert, Oriented x3, Cooperative, No acute distress Limitations: No limitations, Other (poor historian with little understanding of medical conditions) - Head Head exam: Atraumatic, Normocephalic, Normal inspection Head exam detail: negative: Abrasion, Contusion, Ordonez's sign, General tenderness, Hematoma, Laceration - Eye Eye exam: Normal appearance. negative: Conjunctival injection, Periorbital swelling, Periorbital tenderness, Scleral icterus - ENT Ear exam: negative: Auricular hematoma, Auricular trauma Nasal Exam: negative: Active bleeding, Discharge, Dried blood, Foreign body Mouth exam: negative: Drooling, Laceration, Muffled voice, Tongue elevation Teeth exam: Other (dental plate) - Neck Neck exam: Normal inspection. negative: Meningismus, Tenderness - Respiratory Respiratory exam: Normal lung sounds bilaterally. negative: Respiratory distress, Rhonchi, Stridor, Wheezes - Cardiovascular Cardiovascular Exam: Regular rate, Normal rhythm, Normal heart sounds - GI/Abdominal GI/Abdominal exam: Soft. negative: Pulsatile mass, Rebound, Rigid, Tenderness - Rectal Rectal exam: Deferred - exam: Deferred - Extremities Extremities exam: Pedal edema. negative: Calf tenderness, Tenderness - Back Back exam: Denies: CVA tenderness (R), CVA tenderness (L) - Neurological Neurological exam: Alert, Oriented X3, Other (mild resting tremor to the upper extremities bilaterally on examination). negative: Motor sensory deficit - Psychiatric Psychiatric exam: Normal affect, Normal mood - Skin Skin exam: Pallor. negative: Abrasion Type of lesion: negative: abrasion Assessment and Plan - Assessment and Plan (1) Hypoglycemia Current Visit: Yes Status: Acute Base Code: E16.2 - HYPOGLYCEMIA, UNSPECIFIED Comment: 02/27/17- patient has labile blood sugars while on injectable insulins. Start long acting insulin yesterday in hopes to better control sugars. Acute hypoglycemia resolved following glucagon, oral glucose, and D50. Now sugars are swinging in high range. -continue ada diet -accuchecks QID and prn advised for home (2) Noncompliance Current Visit: Yes Status: Acute Base Code: Z91.19 - PATIENT'S NONCOMPLIANCE W OTH MEDICAL TREATMENT AND REGIMEN Comment: 02/27/17- Noncompliance 2/2 poor health literacy and mental competency has resulted in frequent hospitalizations. Not safe discharge as patient cannot recall his own medication, doubles dosing of insulin at times, has mulitple hosptializations and EMS calls. -SW consulted and working on termite control technician placement options -will conduct full medication reconciliation once we have all of his medications - APS contacted due to situation. (3) T2DM (type 2 diabetes mellitus) Current Visit: Yes Status: Acute Qualifiers: Diabetes mellitus complication status: with neurologic complications Diabetes mellitus complication detail: with polyneuropathy Diabetes mellitus half-way insulin use: with termite control technician use Qualified Code(s): E11.42 - Type 2 diabetes mellitus with diabetic polyneuropathy; Z79.4 - termite control technician (current) use of insulin Base Code: E11.9 - TYPE 2 DIABETES MELLITUS WITHOUT COMPLICATIONS Comment: 02/27- A1C is 7.52 which is goal for age. Very difficult to determine which medications patient has actually been taking regularly. He has januvia, novolog , levemir and tresiba listed. Patient clearly is having difficulty managing medications since mulitple hsoptializations and no outpatient follow up. At this time, will add levamir to mod novolog sliding scale to control while inpatient. W[place]king on safe discharge. -ADA diet wtih Accuchecks ordered -will restart his gabapentin for nerve pain but lower dose to 300mg PO tid from 600mg po tid. (4) Full code status Current Visit: Yes Status: Acute Base Code: Z78.9 - OTHER SPECIFIED HEALTH STATUS Comment: 02/24/17- patient is full code (5) Wears dentures Current Visit: Yes Status: Acute Base Code: Z97.2 - PRESENCE OF DENTAL PROSTHETIC DEVICE (COMPLETE) (PARTIAL); K08.109 - COMPLETE LOSS OF TEETH, UNSPECIFIED CAUSE, UNSPECIFIED CLASS Comment: patient currently wearing dentures, they are in place to encourage better diet and speech Results - Labs Result Diagrams: 02/27/17 06:28 02/27/17 06:28 Labs Last 24 Hours: Laboratory Results - last 24 hr 02/26/17 02/26/17 02/27/17 17:00 21:11 06:28 WBC 9.7 RBC 4.37 L Hgb 13.0 L Hct 40.5 L MCV 92.7 MCH 29.7 MCHC 32.1 RDW 14.6 H Plt Count 271 MPV 9.7 Gran % 52.7 Lymphocytes % 35.4 Monocytes % 7.9 Eosinophils % 3.4 Basophils % 0.6 Sodium Potassium Chloride Carbon Dioxide Anion Gap BUN Creatinine Estimated GFR POC Glucose 292 H 174 H Random Glucose Calcium Total Bilirubin AST ALT Alkaline Phosphatase Total Protein Albumin Globulin Albumin/Globulin Ratio 02/27/17 02/27/17 02/27/17 06:28 08:11 12:25 WBC RBC Hgb Hct MCV MCH MCHC RDW Plt Count MPV Gran % Lymphocytes % Monocytes % Eosinophils % Basophils % Sodium 138 Potassium 4.7 Chloride 105 Carbon Dioxide 26.1 Anion Gap 6.9 L BUN 26 H Creatinine 1.1 Estimated GFR > 60 POC Glucose 286 H 312 H Random Glucose 291 H Calcium 9.9 Total Bilirubin 0.75 AST 48 ALT 33 Alkaline Phosphatase 173 H Total Protein 6.8 Albumin 3.8 Globulin 3.0 Albumin/Globulin Ratio 1.3 DVT/PE Assessment - Risk for VTE Risk for VTE: No Risk Level: High Risk Assessment Date: 02/24/17 Risk Assessment Time: 13:52 VTE Orders Placed or Will Be Placed: Yes - Active Medicaitons Current Medications: Current Medications Acetaminophen (Tylenol 500mg Tab) 500 mg PO Q6H PRN PRN Reason: PAIN/TEMP Last Admin: 02/26/17 14:08 Dose: 500 mg Atorvastatin Calcium (Lipitor) 20 mg PO QHS ELIJAH Last Admin: 02/26/17 21:07 Dose: 20 mg Carbidopa/Levodopa (Sinemet) 1 each PO TID ELIJAH Last Admin: 02/27/17 09:29 Dose: 1 each Clopidogrel Bisulfate (Plavix) 75 mg PO DAILY [facility] Last Admin: 02/27/17 09:29 Dose: 75 mg Clotrimazole (Lotrisone) 45 gm TOP BID [facility] Last Admin: 02/27/17 09:34 Dose: 45 gm Doxazosin Mesylate (Cardura) 0.5 mg PO DAILY [facility] Last Admin: 02/27/17 09:29 Dose: 0.5 mg Duloxetine HCl (Cymbalta) 60 mg PO BID [facility] Last Admin: 02/27/17 09:29 Dose: 60 mg Enalapril Maleate (Vasotec) 10 mg PO QHS [facility] Last Admin: 02/26/17 21:07 Dose: 10 mg Enoxaparin Sodium (Lovenox) 40 mg SQ DAILY [facility] Last Admin: 02/27/17 09:30 Dose: 40 mg Furosemide (Lasix) 20 mg PO DAILY [facility] Last Admin: 02/27/17 09:29 Dose: 20 mg Gabapentin (Neurontin) 300 mg PO TID [facility] Last Admin: 02/27/17 09:29 Dose: 300 mg Sodium Chloride () 1,000 mls @ 15 mls/hr IV .Q24H PRN PRN Reason: LARGE VOLUME IV Insulin Aspart (Novolog Flexpen) 1 unit SQ TIDINS [facility] PRN Reason: Protocol Last Admin: 02/27/17 12:18 Dose: 14 unit Insulin Detemir (Levemir Flextouch) 20 unit SQ QHS [facility] Last Admin: 02/26/17 12:54 Dose: 20 unit Pantoprazole Sodium (Protonix) 40 mg PO BIDAC [facility] Last Admin: 02/27/17 06:05 Dose: 40 mg Zolpidem Tartrate (Ambien) 5 mg PO QHS PRN PRN Reason: SLEEP Last Admin: 02/26/17 21:07 Dose: 5 mg AMI Plan - Labs Result Diagrams: 02/27/17 06:28 02/27/17 06:28
[2017-02-27] MEDS: ACETAMINOPHEN 500 MG TABLET PO PRN ×2 (16:25→22:59)
[2017-02-27] MEDS: ENALAPRIL 5 MG TABLET PO SCH (22:05)
[2017-02-27] MEDS: LEVEMIR FLEXTOUCH 100 UNIT/ML INSULIN PEN SQ SCH (22:05)
[2017-02-27] MEDS: ATORVASTATIN 20 MG TABLET PO SCH (22:05)
[2017-02-27] MEDS: ZOLPIDEM TARTRATE 5 MG TABLET PO PRN (22:59)
[2017-02-28] MEDS: PANTOPRAZOLE SODIUM 40 MG TABLET PO SCH (06:12)
[2017-02-28] MEDS: NOVOLOG FLEXPEN (INSULIN ASPART) 100 UNITS/ML SQ SCH ×2 (08:07→12:02)
[2017-02-28] MEDS: CLOPIDOGREL 75MG TABLET PO SCH (11:52)
[2017-02-28] MEDS: DULOXETINE HCL 30 MG CAPSULE.DR PO SCH (11:52)
[2017-02-28] MEDS: CARBIDOPA/LEVODOPA 25MG/100MG TABLET PO SCH (11:52)
[2017-02-28] MEDS: ENOXAPARIN 40 MG/0.4 ML SYR SQ SCH (11:55)
[2017-02-28] MEDS: CLOTRIMAZOLE/BETAMET 15 GM TUBE TOP SCH (11:55)
[2017-02-28] MEDS: GABAPENTIN 300 MG CAPSULE PO SCH (11:55)
[2017-02-28] MEDS: FUROSEMIDE 20 MG TABLET PO SCH (12:06)
[2017-02-28] MEDS: DOXAZOSIN MESYLATE 2 MG TABLET PO SCH (12:07)
== END 2017-02-28 14:00 | DRG 638 ==
LOC: ER 18:17 → MEDSURG 21:30 → OBSVTOIN 02-24 13:05
PROVIDERS: ADMIT Family Medicine; ATTEND Family Medicine
DX: E11.649 Type 2 diabetes mellitus with hypoglycemia without coma (principal); T76.91XA Unspecified adult maltreatment, suspected, initial encounter; E11.40 Type 2 diabetes mellitus with diabetic neuropathy, unspecified; Z79.4 Long term (current) use of insulin; I10 Essential (primary) hypertension; I44.30 Unspecified atrioventricular block; G20 Parkinson's disease; Z95.0 Presence of cardiac pacemaker; N18.3 Chronic kidney disease, stage 3 (moderate); E21.3 Hyperparathyroidism, unspecified; E78.00 Pure hypercholesterolemia, unspecified; Z60.8 Other problems related to social environment; Z91.19 Patient's noncompliance with other medical treatment and regimen
CPT/HCPCS: 93041; 99285 ×2; 96374; 96372; 96361; 82550; 83605; 82140; 85025 ×2; 82553; 84484; 80053 ×2; 36416 ×6; 83036; 82948 ×5; 81003; 83880; 71020; 70450; 93005; 93010; G0378 ×3; 51798; 97165; 99223; 99233; 99239; J1650; J7030

== ENCOUNTER 2018-07-29 11:08 | Day surgery (SDC) | payer MEDICARE, BC ==
--- NOTE | 2018-07-29 07:29 | History and Physical - Ferro ---
CHIEF COMPLAINT/HISTORY OF CHIEF COMPLAINT: This patient presents with a history of a lumbar radiculopathy. Due to the failure of all therapies, he is presenting today for an implanted spinal catheter infusion trial with Hydromorphone to determine if the implantation of a permanent system can be of any value in pain control. PAST MEDICAL HISTORY: Hypertension, diabetic, and peripheral neuropathy. PAST SURGICAL HISTORY: Cervical spine fusion, gastric surgery, and pacemaker placement. MEDICATIONS ON ADMISSION: List to be provided. Blood thinners are noted. ALLERGIES: None. FAMILY/PSYCHOSOCIAL HISTORY: Social history - Noncontributory. Family history - Diabetes and hypertension. SYSTEMS REVIEW: The patient is appropriate in no acute distress. The remainder of the systems review is positive for sleep disturbance, blood pressure problems, cardiac arrhythmia with pacemaker, gastritis, degenerative arthritis and difficulty sleeping. PHYSICAL EXAMINATION: Height is 5'6", weight is 200 pounds. No vital signs. HEENT: Within normal limits. LUNGS: Clear. HEART: Regular rate and rhythm. ABDOMEN: Nontender. MUSCULOSKELETAL: Examination of the musculoskeletal system shows diffuse tenderness throughout the lumbar spine. Range of motion produces pain throughout the low back and extending into both lower extremities. Motor and sensory field evaluation shows diffuse weakness throughout the lower extremities. There is sensory abnormality throughout both lower extremities. Ambulation - An assistive device is utilized. NEUROLOGIC: Cranial nerves are intact. IMPRESSION: LUMBAR RADICULOPATHY, ICD-10 CODE M54.16 AND M54.17. PLAN: The patient is here for an implanted spinal catheter infusion trial with Hydromorphone to determine if the implantation of a permanent system can be of any value in pain control. The procedure will be outpatient and an overnight stay will be evaluated. JOB NUMBER: [id number] [facility]
[~2018-07-29 11:08] MED LIST: ACETAMINOPHEN 1,000 MG/100 ML BTL IV ONE; CEFAZOLIN 2 Gram 2 GM/50 ML BAG IVPB ONE; FAMOTIDINE 20MG TABLET PO ONE; HYDROMORPHONE PF 2MG/ML AMP 0.008 MG in 0.9 % SODIUM CHLORIDE 10ML VIA 0.996 ML IV ONE; HYDROMORPHONE PF 2MG/ML AMP 8 MG in 0.9 % SODIUM CHLORIDE 500ML 496 ML IV ONE; MECLIZINE 25 MG TABLET PO ONE; METOCLOPRAMIDE 10 MG TABLET PO ONE
[2018-07-29] MEDS ORDERED: LIDOCAINE 2% MDV (20MG/ML) 20ML VIAL IV ONE (11:09)
[2018-07-29] MEDS ORDERED: 0.9 % SODIUM CHLORIDE 10 ML VIAL IVP ONE (11:09)
[2018-07-29] MEDS ORDERED: MIDAZOLAM HCL 2MG/2ML VIAL IV ONE (11:09)
[2018-07-29] MEDS ORDERED: FENTANYL PF 100MCG/2ML VIAL IV ONE (11:09)
[2018-07-29] MEDS ORDERED: CEFAZOLIN 1G VIAL IM ONE (11:09)
[2018-07-29] MEDS ORDERED: BUPIVACAINE 0.5% W/EPI MPF 30 ML VIAL IVP ONE (11:09)
[2018-07-29] MEDS ORDERED: LIDOCAINE 1% W/EPI 1:200,000 MPF 30ML SQ ONE (11:09)
[2018-07-29] MEDS ORDERED: METOCLOPRAMIDE HCL 10 MG/2 ML VIAL IVP PRN (15:44)
[2018-07-29] MEDS ORDERED: METOCLOPRAMIDE 10 MG TABLET PO PRN (15:44)
[2018-07-29] MEDS ORDERED: DIPHENHYDRAMINE HCL 50 MG/ML VIAL IVP PRN ×2 (15:44)
[2018-07-29] MEDS ORDERED: TEMAZEPAM 15 MG CAPSULE PO PRN ×2 (15:44)
[2018-07-29] MEDS ORDERED: HYDROCODONE/APAP 7.5/325MG TABLET PO PRN ×2 (15:44)
[2018-07-29] MEDS ORDERED: DIPHENHYDRAMINE HCL 25 MG CAPSULE PO PRN ×2 (15:44)
[2018-07-29] MEDS ORDERED: OXYCODONE/APAP 10MG-325MG TABLET PO PRN (15:44)
[2018-07-29] MEDS ORDERED: AL HYDROX/MAG HYDROX 30ML UD PO PRN (15:44)
[2018-07-29] MEDS ORDERED: NALOXONE 0.4 MG/1 ML VIAL IVP PRN (15:44)
[2018-07-29] MEDS ORDERED: SENNOSIDES/DOCUSATE SODIUM UD CAPSULE PO PRN ×2 (15:44)
[2018-07-29] MEDS ORDERED: ACETAMINOPHEN 325 MG TAB PO PRN ×2 (15:44)
[2018-07-29] MEDS ORDERED: HYDROMORPHONE HCL 2 MG/ML VIAL IM PRN ×2 (15:44)
[2018-07-29] MEDS ORDERED: ALBUTEROL SULFATE (0.083%) 2.5 MG/3 ML NEB INH PRN (15:58)
[2018-07-29] MEDS: OXYCODONE/APAP 10MG-325MG TABLET PO PRN ×2 (16:06→20:30)
[2018-07-29] MEDS: RINGERS SOLUTION,LACTATED 1,000 ML IV SCH ×2 (16:10→23:23)
[2018-07-29] MEDS: CARBIDOPA/LEVODOPA 25MG/100MG TABLET PO SCH ×2 (17:06→21:09)
[2018-07-29] MEDS: PANTOPRAZOLE SODIUM 40 MG TABLET PO SCH (17:06)
[2018-07-29] MEDS: GABAPENTIN 300 MG CAPSULE PO SCH ×2 (17:06→21:10)
[2018-07-29] MEDS: DICYCLOMINE HCL 10 MG CAPSULE PO SCH ×2 (17:06→21:08)
[2018-07-29] MEDS: NOVOLOG FLEXPEN (INSULIN ASPART) 100 UNITS/ML SQ SCH (17:32)
[2018-07-29] MEDS: DULOXETINE HCL 30 MG CAPSULE.DR PO SCH (21:10)
[2018-07-29] MEDS: CEFAZOLIN 2 Gram 2 GM/50 ML BAG IVPB SCH (21:53)
[2018-07-29] MEDS ORDERED: MIRTAZAPINE 15 MG TABLET PO SCH (22:00)
--- NOTE | 2018-07-29 22:13 | Operative Note ---
DATE OF SURGERY: 07/29/2018 PREOPERATIVE DIAGNOSIS: LUMBAR RADICULOPATHY, ICD-10 CODE = M54.16 AND M54.17. SURGERY: 1. FLUOROSCOPIC-GUIDED SPINAL ACCESS AT L3-4, PLACEMENT OF THIN-WALLED SPINAL CATHETER T12. 2. DIAGNOSTIC MYELOGRAPHY WITH RADIOLOGIC SUPERVISION AND INTERPRETATION. 3. SPINAL OPIOID BOLUS HYDROMORPHONE 0.002 MG SPINAL SPACE. 4. INCISION, SUBCUTANEOUS DISSECTION, AND ANCHORING OF SPINAL CATHETER TO SUPRASPINOUS FASCIA WITH ANCHORING DEVICE AND NONABSORBABLE SUTURE. 5. INCISION, SUBCUTANEOUS DISSECTION, AND CREATION OF SUBCUTANEOUS POUCH AT LEFT FLANK FOR PLACEMENT OF PUMP. 6. TUNNELING BETWEEN SPINAL POUCH AND FLANK POUCH EXTENDING SPINAL CATHETER INTO FLANK POUCH. 7. INTERFACE SPINAL CATHETER WITH SECOND CATHETER COMPONENT BY WAY OF A CONNECTOR, TUNNELING SECOND CATHETER COMPONENT 6 CM SUPERIOR EXITING SKIN. 8. INTERFACE EXTERNAL CATHETER TO EXTERNAL PUMP SET TO DELIVER HYDROMORPHONE 0.08 MG A DAY. 9. CLOSURE OF MIDLINE INCISION WITH VICRYL FOR FASCIA, TIMOTEO FOR SKIN. CLOSURE OF FLANK INCISION WITH RUNNING NYLON. 10. EPIDURAL BLOOD PATCH AT L4-5, 20 ML AUTOLOGOUS BLOOD STERILE TECHNIQUE LEFT ANTECUBITAL. 11. PLACEMENT OF DRESSING SECURING CATHETER AND ALL CONNECTIONS WITH STERILE DRESSING. PATIENT TRANSPORTED TO THE RECOVERY ROOM STABLE, FLAT, PILLOW UNDER HEAD AND KNEES. NO UNUSUAL COMPLAINTS OF PAIN. FULL FUNCTIONALITY OF EXTREMITIES. SURGEON: RADHA LIN D.O. ANESTHESIA: LOCAL SEDATION. ANESTHESIA PROVIDER: CECILIO NEVES CRNA INDICATIONS: This patient presents with a history of an intractable lumbar radiculopathy. Due to the failure of therapy, he is here for a spinal opioid infusion trial with Hydromorphone to determine if the implantation of a permanent system can be of any value in pain control. SURGERY: Intravenous line, vital sign monitoring, IV sedation, prepped and draped sterile technique. Under imaging, the spinal interspace at L3-4 was identified and marked, skin infiltrated. Then, a #20 gauge spinal needle paramedian approach with bevel with the long axis inserted into the spinal space on AP and lateral imaging. The needle was advanced into the spinal space on lateral image. With CSF flow, a thin-walled spinal catheter was advanced and positioned at T12. Diagnostic myelography was performed. The resulting flow characteristics were appropriate for the space. Catheter straight, linear, posterior midline T12. With these positive findings, a bolus of Hydromorphone 0.002 mg given into spinal space. The skin above and below the needle infiltrated, incision made and subcutaneous dissection was conducted to the supraspinous fascia. The needle was removed and the catheter was anchored to the supraspinous fascia with an anchoring device and nonabsorbable suture. CSF was still noted through the catheter. Catheter clamped. At the left flank, a site picked by the patient ultimately for the pump, skin infiltrated, incision made and subcutaneous dissection was conducted to form a small pouch. A tunneling tool was used to carry the spinal catheter into the flank pouch and then the spinal catheter was interfaced to a second catheter component by way of a connector. This second catheter component was tunneled 6 cm superior, exiting the skin. It was then interfaced to an external pump set to deliver Hydromorphone at 0.08 mg a day. The flank incision was closed with a running nylon. The midline incision was closed with Vicryl and timoteo. At L4-5, which was one level below the spinal puncture, the skin was infiltrated and then a # 17 gauge five-inch Tuohy needle with [id number] into the epidural space. Simultaneously, 20 mL autologous blood, sterile technique, left antecubital was then placed onto the field. An epidural blood patch was performed at this level with this blood. The incisions were then covered with sterile dressing. Catheter and all connections were then covered with sterile dressing. The patient was turned supine, pillow under head and knees, and transported to the Recovery Room stable, no side-effects from the procedure or the sedation. He had full functionality of his extremities. There were no unusual complaints of pain. He tolerated the procedure without incident. He will be monitored flat for four hours, slowly elevated for one, and then be considered a candidate for discharge, although overnight stay has been recommended. He will be evaluated for discharge. DISCHARGE INSTRUCTIONS: 1. The sites are to remain clean and dry. No showering or bathing in any way that would disrupt dressings. If it happens, he can contact the clinic. 2. Standard medications will be resumed including the antibiotic Levaquin 500 mg once a day for 14 days. 3. 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 If it happens, contact the clinic. He will be seen in the office within the next 2 to 3 days for possibly his first increase. A series of three increases will be scheduled over the two week trial. At the end of the trial period, we will either implant the device or remove the catheter. cc: Dr. Cortez JOB NUMBER: [id number] [facility]
[2018-07-30] MEDS: OXYCODONE/APAP 10MG-325MG TABLET PO PRN ×3 (01:08→09:56)
[2018-07-30] MEDS: CEFAZOLIN 2 Gram 2 GM/50 ML BAG IVPB SCH ×2 (05:03→08:34)
[2018-07-30] MEDS: PANTOPRAZOLE SODIUM 40 MG TABLET PO SCH ×2 (05:12→06:00)
[2018-07-30] MEDS: NOVOLOG FLEXPEN (INSULIN ASPART) 100 UNITS/ML SQ SCH (08:05)
[2018-07-30] MEDS: CARBIDOPA/LEVODOPA 25MG/100MG TABLET PO SCH (09:58)
[2018-07-30] MEDS: GABAPENTIN 300 MG CAPSULE PO SCH (09:58)
[2018-07-30] MEDS: DICYCLOMINE HCL 10 MG CAPSULE PO SCH (09:58)
[2018-07-30] MEDS: DULOXETINE HCL 30 MG CAPSULE.DR PO SCH (09:58)
[2018-07-30] MEDS: RINGERS SOLUTION,LACTATED 1,000 ML IV SCH (10:00)
[2018-07-30] MEDS ORDERED: ATENOLOL 50 MG TABLET PO SCH (10:00)
[2018-07-30] MEDS ORDERED: AMLODIPINE BESYLATE 5MG TAB PO SCH (10:00)
[2018-07-30] MEDS ORDERED: FUROSEMIDE 20 MG TABLET PO SCH (10:00)
[2018-07-30] MEDS ORDERED: ENALAPRIL 5 MG TABLET PO SCH (10:00)
[2018-07-30] MEDS ORDERED: LEVEMIR FLEXTOUCH 100 UNIT/ML INSULIN PEN SQ SCH (10:00)
[2018-07-30] MEDS ORDERED: PIOGLITAZONE HCL 15 MG TABLET PO SCH (10:00)
[2018-07-30] MEDS ORDERED: ATORVASTATIN 20 MG TABLET PO SCH (10:00)
[2018-07-30] MEDS ORDERED: DOXAZOSIN MESYLATE 2 MG TABLET PO SCH (10:00)
[2018-07-30] MEDS ORDERED: PREDNISONE 1 MG TABLET PO SCH (10:00)
--- NOTE | 2018-07-30 15:09 | RADIOLOGY REPORT ---
EXAM: THORACIC SPINE HISTORY: STIMULATOR PLACEMENT. TECHNIQUE: A single AP view of the thoracic spine was performed. FINDINGS: Stimulator lead tips are at the T7 level. IMPRESSION: LEAD STIMULATOR TIPS ARE AT THE T7 LEVEL. JOB NUMBER: [id number] [facility]
== END 2018-07-30 10:46 | disposition home or self-care (01) ==
LOC: SUR 11:08 → MEDSURG 15:28 → SUR 07-30 10:46
PROVIDERS: ATTEND Pain Medicine Interventional Pain Medicine
DX: M54.16 Radiculopathy, lumbar region (principal); M54.17 Radiculopathy, lumbosacral region; I10 Essential (primary) hypertension; E11.9 Type 2 diabetes mellitus without complications; Z79.4 Long term (current) use of insulin; I48.91 Unspecified atrial fibrillation; E78.00 Pure hypercholesterolemia, unspecified; G20 Parkinson's disease; M19.90 Unspecified osteoarthritis, unspecified site
CPT/HCPCS: 36416; 72020; 82948; J0690; J1170; J7040; J7120; J7512

== ENCOUNTER 2018-08-05 11:26 | Day surgery (SDC) | payer MEDICARE, BC ==
--- NOTE | 2018-08-04 16:16 | History and Physical - Ferro ---
CHIEF COMPLAINT/HISTORY OF CHIEF COMPLAINT: This patient with an ongoing implanted spinal catheter infusion trial with Hydromorphone is here for permanent implant. Shortly after the trial was initiated the patient was taken to the Emergency Room and eventually hospitalized because of dehydration. During the hospitalization period he had nearly 100% pain control. As he arrives he is indicating between 50-75% pain control and wants to move to a permanent implant. PAST MEDICAL HISTORY: Hypertension and peripheral neuropathy. PAST SURGICAL HISTORY: Cervical spine fusion, gastric surgery, and pacemaker placement. MEDICATIONS ON ADMISSION: List to be provided with blood thinners. ALLERGIES: None. FAMILY/PSYCHOSOCIAL HISTORY: Social history - Noncontributory. Family history - Noncontributory. SYSTEMS REVIEW: The patient seems appropriate in no acute distress. The remainder of the systems review is positive for blood pressure, cardiac arrhythmia, pacemaker, gastritis, and degenerative arthritis. PHYSICAL EXAMINATION: Height is 5'6", weight is 200 pounds. HEENT: Within normal limits. HEART: Slana and irregular. ABDOMEN: Nontender. MUSCULOSKELETAL: The dressing for the implanted catheter trial is in place. It has been reinforced during his hospitalization. External pump in place and infusing appropriately. Primary pain pattern low back with a lower extremity extension. Motor and sensory field abnormalities are noted. NEUROLOGIC: Cranial nerves are intact. IMPRESSION: 1. LUMBAR RADICULOPATHY, ICD-10 CODE M54.16 AND M54.17. 2. IMPLANTED SPINAL CATHETER INFUSION TRIAL WITH HYDROMORPHONE. PLAN: Although somewhat irregular this patient is achieving 75% pain control. He spent a good part of his trial period in the hospital, but the trial period had to be abbreviated because of his use of blood thinners. The patient feels he had up to 75% relief, didn't requite oral medications , in fact he used no pain medications while hospitalized. Overall it would appear that he had a successful trial and because he is requesting the permanent implant we will move forward. The procedure will be considered outpatient although an overnight stay will be evaluated. The external pump will be removed, internal pump placed, and interfacet the indwelling catheter. The risks, side effects, and complications have all been reviewed and discussed. J[facility]BER: [id number] [facility]
[~2018-08-05 11:26] MED LIST changes: +HYDROMORPHONE HCL 0.04 GM in 0.9 % SODIUM CHLORIDE 10ML VIA 20 ML IV ONE; -HYDROMORPHONE PF 2MG/ML AMP 8 MG in 0.9 % SODIUM CHLORIDE 500ML 496 ML IV ONE
[2018-08-05] MEDS ORDERED: 0.9 % SODIUM CHLORIDE 10 ML VIAL IVP ONE (11:27)
[2018-08-05] MEDS ORDERED: LIDOCAINE 2% MDV (20MG/ML) 20ML VIAL IV ONE (11:27)
[2018-08-05] MEDS ORDERED: CEFAZOLIN 1G VIAL IM ONE (11:27)
[2018-08-05] MEDS ORDERED: PROPOFOL 10 MG/ML VIAL IV ONE (11:27)
[2018-08-05] MEDS ORDERED: BUPIVACAINE 0.5% W/EPI MPF 30 ML VIAL IVP ONE (11:27)
[2018-08-05] MEDS ORDERED: LIDOCAINE 1% W/EPI 1:200,000 MPF 30ML SQ ONE (11:27)
[2018-08-05] MEDS ORDERED: KETAMINE HCL 100MG/1ML VIAL INJ ONE (11:27)
[2018-08-05] MEDS ORDERED: HYDROMORPHONE HCL 2 MG/ML VIAL IV ONE (11:27)
--- NOTE | 2018-08-07 08:35 | Operative Note ---
DATE: 08/05/2018. PREOPERATIVE DIAGNOSES: 1. LUMBAR RADICULOPATHY, ICD-10 CODE M54.16 AND M54.17. 2. IMPLANTED SPINAL CATHETER INFUSION TRIAL WITH HYDROMORPHONE. PROCEDURES: 1. Incision, subcutaneous dissection, and removal of external catheter. 2. Incision, subcutaneous dissection, and creation of subcutaneous pouch at left flank for placement of pump identified as Medtronic 20 mL programmable pump. 3. Revision and resection of indwelling spinal catheter. Interface indwelling spinal catheter to a second catheter component by way of connector. 4. Placement of 20-mL programmable pump onto field prefilled with hydromorphone 1.0 mL per mL, interfaced with revised catheter. 5. Placement of pump catheter connection into left flank pouch formed previously, securing to posterior fascia with nonabsorbable suture at three points with pump eyelets. 6. With pump in pouch, placement of curved 24-gauge Wilkerson needle into access port aspirating and clearing catheter of 1.0 mL of catheter contents, clearing catheter of opioid and cerebrospinal fluid mixture. 7. Diagnostic myelography with radiologic supervision and interpretation through access port. Contrast noted moving through pump and catheter connection. No kinks, leaks, or obstructions. Contrast flow to the catheter identified at T12. Smooth, linear flow of contrast characteristics identified confirming functionality of pump catheter connection. 8. Closure of incision with Vicryl for the fascia timoteo for the skin. Appropriate dressings placed over incisions. 9. Programming of pump to deliver by continuous infusion hydromorphone at 0.09 mg per day. SURGEON: Zoran Rudd D.O. ANESTHESIA: Local sedation. ANESTHESIA PROVIDER: Michelle Chen CRNA. INDICATIONS: This patient presents with a history of intractable lumbar radiculopathy. Due to the failure of all therapies, an implanted catheter trial with hydromorphone was conducted. Because of the patient's use of blood thinners, the trial period was abbreviated to one week. Although there was a hospitalization interrupting this catheter trial, he did have 50 to 75 percent pain control and and requested moving on to a permanent system. DESCRIPTION OF PROCEDURE: He was taken into the operating room and the dressings were removed. The external pump was removed. Sterile prep and sterile technique. At the previous flank incision on the left, the skin was infiltrated. An incision was made and subcutaneous dissection was conducted to form a pouch of suitable size and depth. The externalized catheter was identified, cut, clamped, and then removed, pulling away from the incisional site. The indwelling spinal catheter which had been resected from the external catheter was then revised and resected with a new second catheter component by was of a connector. A 20 mL programmable Medtronic pump prefilled with hydromorphone at 1.0 mg per mL was then placed onto the field. This pump was interfaced with the revised catheter. Antibiotic irrigation and Bovie for hemostasis. The pump was placed into the formed pouch and secured to the posterior fascia at three points with pump eyelets. With the pump in the pouch , a 24-gauge Wilkerson needle was inserted into the access port, and 1.0 mL of catheter contents was aspirated, clearing the catheter of opioid and cerebrospinal fluid mixture. Contrast was then injected through the access port. The resulting myelogram with radiologic supervision and interpretation showed contrast moving through all of the pump catheter connections with no obstructions or leaks. The catheter tip was identified at T12 with appropriate flow confirmed on myelogram. Functionality of the catheter pump combination was confirmed. At that point, with the pump in the pouch, the incision was closed using Vicryl for the fascia timoteo for the skin. A sterile dressing was applied to both incisions. The pump was then programmed to deliver by continuous infusion hydromorphone at 0.09 mg a day. He was then transported to the recovery room stable with no side effects from the procedure or the sedation. When fully awake and alert, he was prepared for discharge back to the facility travel lodge. DISCHARGE INSTRUCTIONS: 1. The sites are to remain clean and dry. No showering or bathing in any way until he is seen in the office in seven to ten days. The office will contact the facility to schedule the appointment. 2. Standard medications to be resumed. His blood thinners will be restarted by Dr. Cronin and/or his returned goods receiving clerk for managing him at the facility. 3. Spinal opioid side effects including respiratory depression, nausea, vomiting, constipation, urinary retention, lightheadedness, and rash have all been discussed and reviewed. 4. All other instructions were provided including numbers to contact with problems. JOB NUMBER: [id number] cc: Dr. Roseanne CONNOR
== END 2018-08-05 16:15 ==
LOC: SUR 11:26
PROVIDERS: ATTEND Pain Medicine Interventional Pain Medicine
DX: M54.16 Radiculopathy, lumbar region (principal); M54.17 Radiculopathy, lumbosacral region; I10 Essential (primary) hypertension; E11.9 Type 2 diabetes mellitus without complications; Z79.4 Long term (current) use of insulin; E78.00 Pure hypercholesterolemia, unspecified; Z79.01 Long term (current) use of anticoagulants; J44.9 Chronic obstructive pulmonary disease, unspecified; G20 Parkinson's disease; M19.90 Unspecified osteoarthritis, unspecified site; Z95.0 Presence of cardiac pacemaker; Z86.73 Personal history of transient ischemic attack (TIA), and cerebral infarction without residual deficits
CPT/HCPCS: 62350; 62362; 01936; 62367; Q9967; J1170 ×2; J0690; C1755; C1776